=== PATIENT | female | born 1995 | race Hispanic/Latino ===

== ENCOUNTER 2020-12-17 11:39 | Emergency (ER) | payer BC, MEDICAID ==
[~2020-12-17] VITALS: Ht 157.5 cm; Wt 72.6 kg
[2020-12-17] MEDS ORDERED: 0.9%NACL 1000ML 1,000 ML IV ONE (12:15)
[2020-12-17 12:24] LABS: BASOPHILS % (AUTO) 0.2 % (0.0-5.0); EOSINOPHILS % (AUTO) 0.4 % (0.0-8.0); HEMATOCRIT 31.9 % (36-48); LYMPHOCYTES % (AUTO) 27.5 % (21.0-51.0); MEAN CORPUSCULAR HEMOGLOBIN 30.7 pg (27.0-33.0); MEAN CORPUSCULAR HGB CONC 34.2 g/dL (32.0-36.0); MEAN CORPUSCULAR VOLUME 89.9 fL (79-99); MONOCYTES % (AUTO) 3.9 % (3.0-13.0); NEUTROPHILS % (AUTO) 67.7 % (40.0-77.0); PLATELET COUNT (AUTO) 262 K/uL (130-400); RED BLOOD CELL COUNT(AUTO) 3.55 MIL/uL (4.00-5.50); RED CELL DISTRIBUTION WIDTH 12.5 % (11.0-15.5); WHITE BLOOD COUNT (AUTO) 9.5 K/uL (4.8-10.8)
[2020-12-17 12:35] LABS: CREATININE 0.5 mg/dL (0.5-1.5); POTASSIUM 3.7 mmol/L (3.5-5.1)
[2020-12-17 12:38] LABS: APPEARANCE,URINE Clear (CLEAR); BILIRUBIN,URINE Negative (NEGATIVE); COLOR,URINE Yellow (YELLOW); GLUCOSE, URINE (UA) Negative (NEGATIVE); KETONES,URINE Trace mg/dL (NEGATIVE); LEUKOCYTE ESTERASE ,URINE Trace (NEGATIVE); NITRATE,URINE Negative (NEGATIVE); OCCULT BLOOD,URINE Negative (NEGATIVE); PH,URINE 7.5 (5.0-8.0); PROTEIN,URINE Negative (NEGATIVE)
[2020-12-17 12:41] LABS: HCG,QUAL RESULT POSITIVE (NEGATIVE)
[2020-12-17 12:42] LABS: ALBUMIN 3.2 g/dL (3.5-5.0); BILIRUBIN,TOTAL 0.4 mg/dL (0.2-1.0)
[2020-12-17 12:46] LABS: AMPHET/METH SCREEN,URINE NEGATIVE (NEGATIVE); BARBITURATE SCREEN, URINE NEGATIVE (NEGATIVE); BENZODIAZEPINES SCREEN,URINE NEGATIVE (NEGATIVE); CANNABINOID SCREEN,URINE POSITIVE (NEGATIVE); COCAINE SCREEN,URINE NEGATIVE (NEGATIVE); OPIATE SCREEN,URINE NEGATIVE (NEGATIVE); PHENCYCLIDINE SCREEN,URINE NEGATIVE (NEGATIVE)
[2020-12-17 12:48] LABS: BACTERIA,URINE Few /HPF (None Seen); RBC,URINE 0-1 /HPF (0-1); WBC,URINE 0-1 /HPF (0-1)
[2020-12-17] MEDS ORDERED: PREN-64 PO (12:58)
[2020-12-17] MEDS ORDERED: METO10TA41 PO (12:58)
[2020-12-17] MEDS ORDERED: METOCLOPRAMIDE 10 MG/2 ML VIAL IVP ONE ×2 (13:00→13:30)
[2020-12-17 14:17] VITALS: BP 114/68
== END 2020-12-17 14:24 | disposition home or self-care (01) ==
LOC: EDH 11:39
DX: O26.811 Pregnancy related exhaustion and fatigue, first trimester (principal); O99.321 Drug use complicating pregnancy, first trimester; F12.10 Cannabis abuse, uncomplicated; F10.10 Alcohol abuse, uncomplicated; R42 Dizziness and giddiness; Z79.899 Other long term (current) drug therapy; Z88.1 Allergy status to other antibiotic agents; Z3A.12 12 weeks gestation of pregnancy
CPT/HCPCS: 36415; 80053; 80305; 81001; 81025; 85025; 96361; 96374; 99284; J2765; J7030

== ENCOUNTER 2021-01-25 19:18 | Emergency (ER) | payer MEDICAID ==
[~2021-01-25] VITALS: Ht 157.5 cm; Wt 68.0 kg
[~2021-01-25 19:18] MED LIST: METO10TA41 PO; PREN-64 PO
[2021-01-25 20:53] LABS: BASOPHILS % (AUTO) 0.3 % (0.0-5.0); EOSINOPHILS % (AUTO) 0.7 % (0.0-8.0); HEMATOCRIT 30.1 % (36-48); LYMPHOCYTES % (AUTO) 32.6 % (21.0-51.0); MEAN CORPUSCULAR HEMOGLOBIN 31.1 pg (27.0-33.0); MEAN CORPUSCULAR HGB CONC 34.2 g/dL (32.0-36.0); MEAN CORPUSCULAR VOLUME 90.9 fL (79-99); MONOCYTES % (AUTO) 4.3 % (3.0-13.0); NEUTROPHILS % (AUTO) 61.8 % (40.0-77.0); PLATELET COUNT (AUTO) 266 K/uL (130-400); RED BLOOD CELL COUNT(AUTO) 3.31 MIL/uL (4.00-5.50); RED CELL DISTRIBUTION WIDTH 12.8 % (11.0-15.5); WHITE BLOOD COUNT (AUTO) 10.6 K/uL (4.8-10.8)
[2021-01-25 21:02] LABS: CREATININE 0.5 mg/dL (0.5-1.5); POTASSIUM 3.4 mmol/L (3.5-5.1)
[2021-01-25] MEDS ORDERED: ACETAMINOPHEN 500 MG TABLET PO ONE (21:30)
[2021-01-25 21:32] LABS: ALBUMIN 3.1 g/dL (3.5-5.0); BILIRUBIN,TOTAL 0.2 mg/dL (0.2-1.0); TOTAL PROTEIN, SERUM 6.7 g/dL (6.0-8.3)
[2021-01-25 22:06] VITALS: BP 99/67
== END 2021-01-25 22:08 | disposition home or self-care (01) ==
LOC: EDH 19:18
DX: O9A.212 Injury, poisoning and certain other consequences of external causes complicating pregnancy, second trimester (principal); S30.1XXA Contusion of abdominal wall, initial encounter; F90.9 Attention-deficit hyperactivity disorder, unspecified type; Z88.0 Allergy status to penicillin; Z79.899 Other long term (current) drug therapy; Z3A.17 17 weeks gestation of pregnancy; W03.XXXA Other fall on same level due to collision with another person, initial encounter; Y93.89 Activity, other specified; Y92.89 Other specified places as the place of occurrence of the external cause; Y99.8 Other external cause status
CPT/HCPCS: 36415; 76805; 80053; 84702; 85025; 86850; 86900; 86901

== ENCOUNTER 2021-06-28 17:26 | Inpatient (IN) | payer MEDICAID ==
[~2021-06-28] VITALS: Ht 157.5 cm; Wt 78.9 kg
[2021-06-28] MEDS ORDERED: DINOPROSTONE 10 MG VAGINAL SUPP VG SCH (18:00)
[2021-06-28] MEDS ORDERED: MEPERIDINE-PF 50 MG/ML SYG IVP PRN (18:00)
[2021-06-28] MEDS ORDERED: PROMETHAZINE HCL 25 MG/ML 1ML AMPULE IM PRN (18:00)
[2021-06-28] MEDS ORDERED: ROPIVACAINE 0.2% 100ML VIAL 100 ML EP SCH (18:00)
[2021-06-28] MEDS ORDERED: EPHEDRINE SULFATE 50 MG/ML AMPULE IVP PRN (18:00)
[2021-06-28] MEDS ORDERED: LACTATED RINGERS 500 ML 500 ML IV PRN (18:00)
[2021-06-28] MEDS ORDERED: NALOXONE HCL 0.4 MG/1 ML ML IV PRN (18:00)
[2021-06-28] MEDS: LACTATED RINGERS 1000ML 1,000 ML IV PRN (18:10)
[2021-06-28 18:27] LABS: HEMATOCRIT 30.5 % (36-48); MEAN CORPUSCULAR HEMOGLOBIN 30.4 pg (27.0-33.0); MEAN CORPUSCULAR HGB CONC 33.8 g/dL (32.0-36.0); RED BLOOD CELL COUNT(AUTO) 3.39 MIL/uL (4.00-5.50); RED CELL DISTRIBUTION WIDTH 13.2 % (11.0-15.5); WHITE BLOOD COUNT (AUTO) 10.1 K/uL (4.8-10.8)
[2021-06-28 21:39] LABS: APPEARANCE,URINE Clear (CLEAR); BILIRUBIN,URINE Negative (NEGATIVE); COLOR,URINE Yellow (YELLOW); GLUCOSE, URINE (UA) Negative (NEGATIVE); KETONES,URINE Trace mg/dL (NEGATIVE); LEUKOCYTE ESTERASE ,URINE Negative (NEGATIVE); NITRATE,URINE Negative (NEGATIVE); OCCULT BLOOD,URINE Negative (NEGATIVE); PROTEIN,URINE Negative (NEGATIVE)
[2021-06-29] VITALS (12 sets, daily range): BP systolic 97–129; BP diastolic 58–82
[2021-06-29] MEDS: LACTATED RINGERS 1000ML 1,000 ML IV PRN (02:45)
[2021-06-29] MEDS ORDERED: OXYTOCIN-LR 20 UNITS/1000 ML 1,000 ML IV SCH ×2 (07:00→08:00)
[2021-06-29] MEDS ORDERED: LIDOCAINE HCL 400MG/20ML VIAL ONE (07:16)
[2021-06-29] MEDS ORDERED: ACETAMINOPHEN WITH CODEINE 1 TAB TAB PO PRN (08:00)
[2021-06-29] MEDS ORDERED: LANOLIN 30GM OINTMENT TP PRN (08:00)
[2021-06-29] MEDS ORDERED: WITCH HAZEL 1 PAD TP PRN (08:00)
[2021-06-29] MEDS ORDERED: BENZOCAINE/LANOLIN/ALOE VERA 60 ML AEROSOL TP PRN (08:00)
[2021-06-29] MEDS ORDERED: ACETAMINOPHEN 325 MG TAB PO PRN (08:00)
[2021-06-29] MEDS: IBUPROFEN 600 MG TABLET PO PRN (10:03)
[2021-06-29] MEDS: DOCUSATE SODIUM 100 MG CAP PO SCH ×2 (10:03→21:06)
[2021-06-30 03:39] VITALS: BP 109/67
[2021-06-30] MEDS: IBUPROFEN 600 MG TABLET PO PRN ×2 (03:51→09:42)
[2021-06-30 06:42] LABS: MEAN CORPUSCULAR HEMOGLOBIN 29.8 pg (27.0-33.0); MEAN CORPUSCULAR HGB CONC 32.6 g/dL (32.0-36.0); MEAN CORPUSCULAR VOLUME 91.5 fL (79-99); RED BLOOD CELL COUNT(AUTO) 2.95 MIL/uL (4.00-5.50); RED CELL DISTRIBUTION WIDTH 13.4 % (11.0-15.5); WHITE BLOOD COUNT (AUTO) 10.2 K/uL (4.8-10.8)
[2021-06-30 07:50] VITALS: BP 117/77
[2021-06-30] MEDS: DOCUSATE SODIUM 100 MG CAP PO SCH (09:42)
== END 2021-06-30 13:20 | disposition home or self-care (01) | DRG 560 ==
LOC: LDH 17:26 → WSH 06-29 07:44 → PREOBSVTOIN 06-29 17:25
PROVIDERS: ADMIT Obstetrics & Gynecology; ATTEND Obstetrics & Gynecology
PROC: 10E0XZZ Delivery of Products of Conception, External Approach (ICD-10-PCS; principal; 2021-06-29)
DX: O80 Encounter for full-term uncomplicated delivery (principal); Z37.0 Single live birth; Z3A.39 39 weeks gestation of pregnancy; Z98.84 Bariatric surgery status; Z88.8 Allergy status to other drugs, medicaments and biological substances
CPT/HCPCS: 36415; 76805; 81003; 85027; 86592; 86850; 86900; 86901; 87340; A4351; G0378; J2175; J2550; J2590; J2795; J3490; J7120

== ENCOUNTER 2022-01-08 04:51 | Emergency (ER) | payer MEDICAID ==
[~2022-01-08] VITALS: Ht 157.5 cm; Wt 71.7 kg
[~2022-01-08 04:51] MED LIST changes: -METO10TA41 PO
[2022-01-08] MEDS ORDERED: NAPR-1180 PO (05:23)
[2022-01-08 06:05] VITALS: BP 108/54
[2022-01-08] MEDS ORDERED: KETOROLAC 30MG VIAL (30MG/ML) ONE (06:49)
[2022-01-08] MEDS ORDERED: KETOROLAC 30MG VIAL (30MG/ML) IM ONE (07:00)
== END 2022-01-08 06:58 | disposition home or self-care (01) ==
LOC: EDH 04:51
DX: M25.512 Pain in left shoulder (principal); Z88.1 Allergy status to other antibiotic agents
CPT/HCPCS: 99284; 73060; 73030; 96372; J1885

== ENCOUNTER 2023-03-27 00:44 | Emergency (ER) | payer MEDICAID ==
[~2023-03-27] VITALS: Ht 157.5 cm; Wt 69.9 kg
[~2023-03-27 00:44] MED LIST changes: +NAPR-1180 PO
[2023-03-27 00:47] VITALS: BP 127/78; PULSE 81; RESP 18
== END 2023-03-27 04:58 | disposition left against medical advice (07) ==
LOC: EDH 00:44
DX: R05.9 Cough, unspecified (principal); R09.81 Nasal congestion; J02.9 Acute pharyngitis, unspecified; Z53.21 Procedure and treatment not carried out due to patient leaving prior to being seen by health care provider
CPT/HCPCS: 99281

== ENCOUNTER 2024-03-11 08:06 | Emergency (ER) | payer MEDICAID ==
[~2024-03-11] VITALS: Ht 157.5 cm; Wt 68.0 kg
[2024-03-11 08:15] VITALS: BP 131/66; PULSE 88; RESP 18; TEMP 98.7; O2SAT 99
[2024-03-11] MEDS: ketOROlac 60 MG VIAL (30MG/ML) IM ONE (08:46)
--- NOTE | 2024-03-11 09:06 | ERN ---
ED Note History of Present Illness Stated Complaint: LEFT LOWER BACK PAIN Chief Complaint: Back Pain or Injury Time Seen by MD: 08:15 Dictation: 28-year-old female presents to the ED for evaluation of lower back pain onset 1 month ago worsening last night. Patient reports she has been seen by PCP and was told she was going to need an MRI, but patient has not seen PCP since she states they take too long. Patient mentioned that last night she was on the floor wrapping gifts and woke up with worse pain today, she said she smoked some marijuana and took an ibuprofen pill last night to control the pain, but states there is no improvement. Allergies: Coded Allergies: amoxicillin (Unverified Allergy, Unknown, 12/17/20) clavulanic acid (Unverified Allergy, Unknown, 12/17/20) Home Meds Active Scripts Lidocaine (Lidoderm Patch 5%) 5 % Patch, 1 PATCH TP DAILY for 5 Days, #5 PATCH 0 Refills may wear up to 12 hours Prov:TIARA DRAKE MD 03/11/24 Naproxen (Naprosyn) 500 Mg Tablet, 500 MG PO BIDPC for 10 Days, #20 TAB 0 Refills Prov:LACHO PISANO MD 01/08/22 Vit #76/Iron,Carb/FA (Prenatabs Rx Tablet) 1 Each Tablet, 1 EACH PO DAILY for for 30 Days, #30 TAB Prov:ALFONSO HATHAWAY NP 12/17/20 Past Medical History Past Medical History: No Pertinent History Additional Past Medical Hx: ADHD Surgical History: Bariatric Surgery Surgical History Other: GASTRIC SLEEVE 2020 Family History: Negative Social History: Negative, Lives with family : 2 Para: 2 Aborts: 0 Review of System Dictation Constitutional: Negative for fever,chills, and weight loss Eyes: Negative for injury, pain,redness, and discharge ENT: Negative for injury,pain or swelling Cardiovascular: Negative for chest pain, palpitations, and edema Respiratory: Negative for shortness of breath, cough, and wheezing, Abdomen/GI: Negative for abdominal pain, nausea, vomiting, diarrhea, and constipation Back: Positive for back pain, negative for injury : Negative for injury, bleeding and discharge MS/Extremity: Negative for injury and deformity Skin: Negative for rash, and discoloration Neuro: Negative for headache, weakness, numbness, tingling, and seizure Psych: Negative for suicide ideation, homicidal ideation, and hallucinations Initial Vital Sign VS Vital Signs Date Time Temp Pulse Resp B/P (MAP) Pulse Ox O2 Delivery O2 Flow Rate FiO2 03/11/24 08:06 98.6 65 20 111/80 100 Room Air 0 03/11/24 08:15 21 Physical Exam Dictation General: awake, alert, NAD Head/Face: Normocephalic, atraumatic Eyes: PERRL, EOMI, vision at baseline ENT: oral cavity clear, TMs clear, no signs of infection Neck: Trachea midline, supple, no nuchal rigidity Cardiovascular: RRR, normal S1/S2, No MRGs, no JVD Respiratory: CTAB, no respiratory distress, No rales or wheezes Abdomen: Soft, non-tender, non-distended, normal bowel sounds, no guarding or rebound. Back: Moderate tenderness to lumbar region Skin: Warm, dry, normal turgor, no rash MS/Extremity: Pulses equal, no cyanosis, neurovascular intact, FROM Neuro: COAx4, GCS 15, strength 5/5, CN 2-12 intact, normal cerebellar exam, normal gait, Psych: Normal behavior, mood, and affect normal Results (Laboratory/Radiology) Laboratory/Radiology Laboratory Tests Test 03/11/24 08:53 Urine Color YELLOW (YELLOW) Urine Appearance CLOUDY (CLEAR) H Urine pH 6.0 (5.0-8.0) Urine Specific [place] 1.032 (1.001-1.031) Urine Protein 20 mg/dL (NEGATIVE) H Urine Glucose (UA) NEGATIVE mg/dL (NEGATIVE) Urine Ketones NEGATIVE mg/dL (NEGATIVE) Urine Occult Blood LARGE (NEGATIVE) H Urine Nitrate NEGATIVE (NEGATIVE) Urine Bilirubin NEGATIVE mg/dL (NEGATIVE) Urine Urobilinogen 0.2 mg/dL (0.2-1.0) Urine Leukocyte Esterase NEGATIVE Charlee/uL Urine RBC 26-50 /HPF (0-1) H Urine WBC 2-5 /HPF (0-1) H Urine Squamous Epithelial Cells MANY /HPF (0-2) Urine Bacteria RARE /HPF (None Seen) Urine HCG, Qualitative NEGATIVE (NEGATIVE) Labs Reviewed?: Yes X-RAY Comment: X-ray independently visualized and interpreted by me. No acute process, no fracture. ED Course ED Course Orders Procedure Category Date Status Time Lumbar Spine 2-3vws RAD 03/11/24 Taken 08:17 Urinalysis Profile LAB 03/11/24 Complete 08:17 ,Urine Test LAB 03/11/24 Complete 08:17 Ketorolac 60mg/2ml PHA 03/11/24 Complete (Toradol 60mg/2ml) 08:30 Current Medications Medications (Trade) Dose Ordered Sig/Leslie Route PRN Reason Start Time Stop Time Status Last Admin Dose Admin Ketorolac Tromethamine (toRADol 60MG/ 2ML) 30 mg ONCE ONCE IM 03/11/24 08:30 03/11/24 08:31 DC 03/11/24 08:46 Vital Signs Date Time Temp Pulse Resp B/P (MAP) Pulse Ox O2 Delivery O2 Flow Rate FiO2 03/11/24 08:15 98.8 88 18 131/66 99 Room Air* 0 21 03/11/24 08:06 98.6 65 20 111/80 100 Room Air 0 Medical Decision Making MDM MDM: Differential diagnosis: Lumbar strain, back pain Previous outside records reviewed: Old ER visits. Need for hospitalization: Patient does not meet criteria for hospitalization. Need for emergency major/minor surgery: No Patient's prior external medical records from other ER visits were reviewed by me as indicated. Prior testing and results from previous visits were reviewed. Prior tests were taken into account with medical decision making and resource utilization, independent historian/historians were used to obtain complete medical history. I independently interpreted the test that were performed, results were reviewed by me and considered findings on radiology if ordered. Medical management and examination interpretation discussions were had by me with other qualified healthcare professionals as indicated for the patient's care. DX & DISP Disposition: Discharge Departure Impression: Primary Impression: Acute lumbar back pain Condition: Stable Scripts Lidocaine (Lidoderm Patch 5%) 5 % Patch 1 PATCH TP DAILY for 5 Days, #5 PATCH 0 Refills may wear up to 12 hours Prov: TIARA DRAKE MD 03/11/24 Referrals: THEA GOODSON MD (PCP) I have reviewed, & agreed with my scribe's, documentation. (Entered by Klaudia Alvarado, acting as a scribe for Dr. Drake) I personally scribed for TIARA DRAKE MD ([email or web address]) on 03/11/24 at 09:06. Electronically submitted by Klaudia Alvarado ([email or web address]). TIARA DRAKE MD Mar 11, 2024 09:06
[2024-03-11 09:33] LABS: APPEARANCE,URINE CLOUDY (CLEAR); BILIRUBIN,URINE NEGATIVE (NEGATIVE); COLOR,URINE YELLOW (YELLOW); GLUCOSE, URINE (UA) NEGATIVE (NEGATIVE); KETONES,URINE NEGATIVE (NEGATIVE); LEUKOCYTE ESTERASE ,URINE NEGATIVE Leu/uL (NEGATIVE); NITRATE,URINE NEGATIVE (NEGATIVE); OCCULT BLOOD,URINE LARGE (NEGATIVE); PROTEIN,URINE 20 mg/dL (NEGATIVE); UROBILINOGEN,URINE 0.2 mg/dL (0.2-1.0)
[2024-03-11 09:35] LABS: ADD UA MICROSCOPIC YES; HCG,QUALITATIVE URINE NEGATIVE (NEGATIVE)
[2024-03-11 09:40] LABS: BACTERIA,URINE RARE /HPF (None Seen); MUCUS,URINE FEW LPF (None Seen); RBC,URINE 26-50 /HPF (0-1); SQUAMOUS EPITHELIAL CELL,UR MANY /HPF (0-2)
[2024-03-11] MEDS ORDERED: LIDOP TP (09:44)
--- NOTE | 2024-03-11 10:06 | HMCIMG ---
LUMBAR SPINE 2-3VWS HISTORY: Low back pain COMPARISON: None FINDINGS: 3 images of lumbar spine were obtained. There is straightening of normal lordotic curvature which may be related to muscle spasm or positioning. No loss of vertebral height is seen. No fracture or dislocation is seen. Mild degenerative changes are seen. IMPRESSION: 1. No fracture is seen.
== END 2024-03-11 10:15 | disposition home or self-care (01) ==
LOC: EDH 08:06
DX: M54.50 Low back pain, unspecified (principal); Z88.0 Allergy status to penicillin; Z98.84 Bariatric surgery status
CPT/HCPCS: 99284; 81001; 81025; 72100; 96372; J1885

== ENCOUNTER 2025-01-26 06:48 | Emergency (ER) | payer MEDICAID ==
[~2025-01-26] VITALS: Ht 157.5 cm; Wt 58.2 kg
[2025-01-26 06:49] VITALS: BP 132/72; PULSE 118; RESP 20; TEMP 98.3
--- NOTE | 2025-01-26 06:55 | NUR ---
KATHERYN PISANO AWARE OF PT
== END 2025-01-26 07:32 | disposition left against medical advice (07) ==
LOC: EDH 06:48
DX: R50.9 Fever, unspecified (principal); R09.81 Nasal congestion
CPT/HCPCS: 99281